=== PATIENT | female | born 1950 | race African-American/Black ===

== ENCOUNTER 2017-08-20 13:28 | Emergency (ER) | payer OTHER ==
[~2017-08-20] VITALS: Ht 170.2 cm; Wt 83.0 kg
[2017-08-20] MEDS ORDERED: ONDANSETRON HCL 4MG/2ML VIAL IV STA (13:47)
[2017-08-20] MEDS ORDERED: SODIUM CHLORIDE 0.9% 1,000 ML IV ONE (13:47)
[2017-08-20] MEDS ORDERED: LORAZEPAM 2MG/ML CPJ IV ONE ×2 (14:00→17:00)
[2017-08-20 14:26] LABS: CLARITY URINE CLEAR (CLEAR); COLOR URINE YELLOW (YELLOW); KETONES URINE 1+ (NEGATIVE); LEUKOCYTE ESTERASE URINE NEGATIVE (NEGATIVE); NITRITE URINE NEGATIVE (NEGATIVE); OCCULT BLOOD URINE NEGATIVE (NEGATIVE); PROTEIN URINE NEGATIVE (NEGATIVE); SPECIFIC GRAVITY URINE 1.009 (1.005-1.030); UROBILINOGEN URINE 0.2 E.U./dL (0.2-1.0)
[2017-08-20 14:31] LABS: BASOPHILS % 1.1 % (0.0-2.0); EOSINOPHILS % 0.7 % (0.0-5.0); HEMATOCRIT. 41.5 % (36.0-48.0); HEMOGLOBIN. 13.4 g/dL (12.0-16.0); LYMPHOCYTES % 31.6 % (20.0-50.0); MEAN CORPUSCULAR HEMOGLOBIN 29.5 pg (28.0-32.0); MEAN CORPUSCULAR VOLUME 91.3 fL (81.0-99.0); MEAN PLATELET VOLUME 8.4 fl (7.4-10.4); MONOCYTES % 7.5 % (2.0-8.0); NEUTROPHILS % 59.1 % (40.0-76.0); PLATELET 251 x1000/uL (130-400); RED BLOOD CELL COUNT 4.55 mill/uL (4.2-5.4); RED CELL DISTRIBUTION WIDTH 17.9 % (11.6-14.6)
[2017-08-20 14:36] LABS: PROTHROMBIN TIME 10.4 sec (9.4-11.6)
[2017-08-20 14:37] LABS: CHLORIDE 106 mEq/L (98-107)
[2017-08-20 14:43] LABS: AMMONIA 31 uMol/L (<32)
[2017-08-20 14:46] LABS: CREATINE KINASE 70 IU/L (26-192)
[2017-08-20 14:47] LABS: *AMPHETAMINES SCREEN URINE NEGATIVE (NEGATIVE); *BARBITURATES SCREEN URINE NEGATIVE (NEGATIVE)
[2017-08-20 14:48] LABS: *BENZODIAZEPINES SCREEN URINE NEGATIVE (NEGATIVE); *COCAINE SCREEN URINE NEGATIVE (NEGATIVE); CANNABINOID URINE SCREEN NEGATIVE (NEGATIVE); METHADONE URINE SCREEN NEGATIVE (NEGATIVE); OPIATES URINE SCREEN NEGATIVE (NEGATIVE); PHENCYCLIDINE URINE SCREEN NEGATIVE (NEGATIVE)
[2017-08-20 15:06] LABS: ETHANOL BLOOD 393 mg/dL
[2017-08-20 18:56] VITALS: BP 131/91
== END 2017-08-20 19:29 | disposition home or self-care (01) ==
LOC: ER 13:28
DX: G92 Toxic encephalopathy (principal); T51.0X1A Toxic effect of ethanol, accidental (unintentional), initial encounter; I10 Essential (primary) hypertension; F10.20 Alcohol dependence, uncomplicated; Y90.8 Blood alcohol level of 240 mg/100 ml or more; Y92.89 Other specified places as the place of occurrence of the external cause
CPT/HCPCS: 36415; 80053; 80305; 81003; 82140; 82550; 84443; 85025; 85610; 93005; 96361; 96374; 96375; 96376; 99285; G0482; J2060; J2405; J7030

== ENCOUNTER 2021-12-27 13:54 | Emergency (ER) | payer OTHER ==
[~2021-12-27] VITALS: Ht 175.3 cm; Wt 80.0 kg
[2021-12-27 14:04] VITALS: BP 138/90
== END 2021-12-27 18:14 | disposition home or self-care (01) ==
LOC: ER 14:32
DX: F10.229 Alcohol dependence with intoxication, unspecified (principal); I10 Essential (primary) hypertension; Y90.9 Presence of alcohol in blood, level not specified
CPT/HCPCS: 99283